=== PATIENT | female | born 1995 | race Caucasian/White ===

== ENCOUNTER → 2021-06-28 15:57 | Outpatient (CLI) | payer MEDICAID, SELFPAY ==
[2021-06-28 16:50] LABS: Absolute Lymphocyte Count 3.22 X10^3/uL (0.83-4.51); Absolute Neutrophil Count 6.9 X10^3/uL (2.0-7.7); Basophil# 0.08 X10^3/uL; Basophil% 0.7 % (0-1); Eosinophils% 3.5 % (0-5); Hematocrit 42.8 % (37-47); Hemoglobin 14.3 g/dL (12.0-15.0); Lymphocyte # 3.22 X10^3/ul (0.83-4.51); Mean Corp Hgb Conc 33.4 g/dL (32-36); Mean Corpuscular Hgb 29.9 pg (27.0-32.0); Mean Corpuscular Volume 89.5 fL (81-99); Mean Platelet Vol. 10.6 fl (6.2-12.0); Monocyte# 0.87 X10^3/uL; Monocyte% 7.6 % (0-10); NRBC Flagged by Analyzer 0 % (0-5); Neutrophil # 6.89 X10^3/uL (2.7-7.7); Neutrophil % 59.9 % (47-70); Platelet Count 300 K/mm3 (150-450); RBC Distribution Width CV 12.6 % (11.6-14.6); RBC Distribution Width SD 41.3 fl (35.1-43.9); Red Blood Count 4.78 M/mm3 (4.2-5.4); White Blood Count 11.5 K/mm3 (4.4-11.0)
[2021-06-28 17:10] LABS: Hemoglobin A1c 5.3 % (3.8-5.6)
[2021-06-28 18:52] LABS: ALB/GLOB Ratio 0.9 RATIO (0.9-2.4); AST(SGOT) 11 U/L (15-37); Alanine Aminotransfer ALT/SGPT 24 U/L (13-56); Albumin, Serum 3.7 g/dL (3.2-5.0); Alkaline Phosphatase 65 U/L (45-117); Anion Gap 9 (5-15); BUN 11 mg/dL (7-18); BUN/Creat Ratio 16.6 RATIO (10-20); Calcium,Total 8.9 mg/dL (8.5-10.1); Chloride 105 mmol/L (98-107); Cholesterol 182 mg/dL (200); Creatinine, Serum 0.66 mg/dL (0.55-1.02); EST Glomerular Filtration Rate 113 mL/min (>60); Est Glom Filt Rate - Afr Amer 137 mL/min (>60); Globulin 3.9 g/dL (2.2-4.2); Glucose 86 mg/dL (74-106); High Density Lipoprotein 28 mg/dL; Potassium 4.1 mmol/L (3.5-5.1); Protein, Total 7.6 g/dL (6.4-8.2); Sodium Level 139 mmol/L (136-145); Triglycerides 208 mg/dL; Very Low Density Lipoprotein 42 mg/dL (5-40)
== END ==
PROVIDERS: PCP Internal Medicine; Referring Provider Internal Medicine; Visit Provider Internal Medicine
DX: R56.9 Unspecified convulsions (principal); E66.01 Morbid (severe) obesity due to excess calories; Z68.42 Body mass index [BMI] 45.0-49.9, adult
CPT/HCPCS: 36415; 80053; 80061; 83036; 85025

== ENCOUNTER 2021-09-24 15:04 | Emergency (ER) | payer MEDICAID, SELFPAY ==
[2021-09-24 15:04] VITALS: BP 144/89; PULSE 80; RESP 16; TEMP 36.7; O2SAT 98; BMI 43.0
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
== END 2021-09-24 16:07 | disposition home or self-care (01) ==
LOC: ED 15:33
PROVIDERS: Emergency Provider Emergency Medicine; PCP Internal Medicine; Visit Provider Emergency Medicine
DX: S20.219A Contusion of unspecified front wall of thorax, initial encounter (principal); E66.01 Morbid (severe) obesity due to excess calories; Z68.41 Body mass index [BMI] 40.0-44.9, adult; V49.49XA Driver injured in collision with other motor vehicles in traffic accident, initial encounter; W22.11XA Striking against or struck by driver side automobile airbag, initial encounter; Y93.89 Activity, other specified; Y99.8 Other external cause status; F17.210 Nicotine dependence, cigarettes, uncomplicated
CPT/HCPCS: 71046; 99282

== ENCOUNTER 2021-11-01 14:40 | Outpatient (CLI) | payer MEDICAID, SELFPAY ==
--- NOTE | 2021-11-01 17:09 | US_ITS ---
STUDY: ULTRASOUND OF THE FEMALE PELVIS - COMPLETE REASON FOR EXAM: Female, 25 years old. PCOS LMP: 10/09/2021. TECHNIQUE: Transabdominal TECHNICAL QUALITY: Adequate. COMPARISON: None. FINDINGS: The uterus is anteverted and is in a midline position. The uterus measures 12.1 cm x 5.4 cm x 3.2 cm. Normal uterine cervix. The endometrium measures 2 mm in thickness, and is hyperechoic. There is no demonstrated endometrial mass. There is no demonstrated myometrial mass. I.U.D. - The patient does not have an I.U.D. The right ovary is visualized. The right ovary measures 2.5 cm x 2.6 cm x 1.8 cm. There is no right ovarian cyst or ovarian mass. There is no visualized right adnexal mass or complex lesion. There is normal arterial and normal venous vascularity. The left ovary is visualized. The left ovary measures 4 cm x 3.4 cm x 2.2 cm. There is a 3.1 cm x 2.8 cm x 1.5 cm cyst in the left ovary. There is no visualized left adnexal mass or complex lesion. There is normal arterial and normal venous vascularity. There is no fluid in the cul-de-sac. The pre void volume of the bladder was 471 ml. Polycystic ovary disease: No. US/Pelvic (Non ) IMPRESSION: 3.1 cm by 2.8 cm x 1.5 cm left ovarian cyst. Electronically Signed: Kalpesh Dominguez MD at 8:49 EST ,
== END 2021-11-01 23:59 | disposition home or self-care (01) ==
LOC: US 11-24 14:41
PROVIDERS: PCP Internal Medicine; Referring Provider Internal Medicine; Visit Provider Internal Medicine
DX: E28.2 Polycystic ovarian syndrome (principal)
CPT/HCPCS: 76856

== ENCOUNTER 2021-12-09 12:31 | Outpatient (CLI) | payer MEDICAID, SELFPAY ==
--- NOTE | 2021-12-09 14:51 | TELEMED_ITS ---
[facility] has confirmed receipt of a request for visit. This document confirms receipt of the order initiating the consult. To find the results of the consultation, please view the patient's reports for the scanned Tele[facility] Consult.
== END 2021-12-09 23:59 | disposition home or self-care (01) ==
LOC: PSN 12:32
PROVIDERS: PCP Internal Medicine; Referring Provider Internal Medicine; Visit Provider Internal Medicine
DX: R56.9 Unspecified convulsions (principal)
CPT/HCPCS: 95819

== ENCOUNTER → 2022-04-03 | Outpatient (CLI) | payer MEDICAID, SELFPAY ==
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
--- NOTE | 2022-04-03 16:40 | RAD_ITS ---
STUDY: X-RAY - LUMBAR SPINE REASON FOR EXAM: Female, 26 years old. chronic back pain TECHNIQUE: 3 view(s) of the lumbar spine were obtained. COMPARISON: None FINDINGS: Vertebral bodies are normal in height. No definite fracture demonstrated. No subluxation. No paravertebral soft tissue mass identified. RAD/Lumbar Spine 2 or 3 Views IMPRESSION: No evidence of fracture or subluxation. Electronically Signed: Tania Melgoza MD at 7:38 EDT ,
== END | disposition home or self-care (01) ==
LOC: RAD 16:19
PROVIDERS: PCP Internal Medicine; Visit Provider Nurse Practitioner Family
DX: M54.9 Dorsalgia, unspecified (principal); M25.512 Pain in left shoulder; G89.29 Other chronic pain
CPT/HCPCS: 72100; 73030

== ENCOUNTER → 2022-06-16 | Outpatient (CLI) | payer MEDICAID, SELFPAY ==
[2022-06-16 17:17] LABS: Internal QC Validated? YES +Cl - CLEAR BKGD; Pregnancy, Urine Negative Negative
== END | disposition home or self-care (01) ==
LOC: LABSPEC 17:08
PROVIDERS: PCP Internal Medicine; Visit Provider Nurse Practitioner Family
DX: N92.6 Irregular menstruation, unspecified (principal); R05.9 Cough, unspecified
CPT/HCPCS: 87635; 81025; U0003; U0005

== ENCOUNTER 2023-05-13 04:51 | Emergency (ER) | payer MEDICAID, SELFPAY ==
[2023-05-13 04:52] VITALS: BP 111/84; PULSE 77; RESP 18; TEMP 37; O2SAT 99; BMI 46.0
== END 2023-05-13 05:08 | disposition left against medical advice (07) ==
LOC: ED 05:07
PROVIDERS: PCP Internal Medicine
DX: R69 Illness, unspecified (principal)
CPT/HCPCS: 99282

== ENCOUNTER → 2023-10-17 | Outpatient (CLI) | payer MEDICAID, SELFPAY ==
[2023-10-17 17:00] LABS: Absolute Lymphocyte Count 2.51 X10^3/uL (0.83-4.51); Absolute Neutrophil Count 4.6 X10^3/uL (2.0-7.7); Basophil# 0.05 X10^3/uL; Basophil% 0.6 % (0-1); Eosinophil# 0.21 X10^3/uL; Eosinophils% 2.6 % (0-5); Hematocrit 41.3 % (37-47); Hemoglobin 13.9 g/dL (12.0-15.0); Lymphocyte # 2.51 X10^3/ul (0.83-4.51); Lymphocyte % 31.3 % (19-41); Mean Corp Hgb Conc 33.7 g/dL (32-36); Mean Corpuscular Hgb 29.8 pg (27.0-32.0); Mean Corpuscular Volume 88.4 fL (81-99); Mean Platelet Vol. 10.9 fl (6.2-12.0); Monocyte# 0.65 X10^3/uL; Monocyte% 8.1 % (0-10); NRBC Flagged by Analyzer 0 % (0-5); Neutrophil # 4.57 X10^3/uL (2.7-7.7); Neutrophil % 57.2 % (47-70); Platelet Count 255 K/mm3 (150-450); RBC Distribution Width CV 13.1 % (11.6-14.6); RBC Distribution Width SD 42.7 fl (35.1-43.9); Red Blood Count 4.67 M/mm3 (4.2-5.4)
[2023-10-17 17:16] LABS: Cholesterol 200 mg/dL (200); High Density Lipoprotein 28 mg/dL; Triglycerides 381 mg/dL; Very Low Density Lipoprotein 76 mg/dL (5-40)
[2023-10-17 17:17] LABS: ALB/GLOB Ratio 1.3 RATIO (0.9-2.4); AST(SGOT) 12 U/L (15-37); Alanine Aminotransfer ALT/SGPT 30 U/L (13-56); Albumin, Serum 3.7 g/dL (3.2-5.0); Alkaline Phosphatase 52 U/L (45-117); Anion Gap 2 (5-15); BUN 8 mg/dL (7-18); BUN/Creat Ratio 9.8 RATIO (10-20); Calcium,Total 8.6 mg/dL (8.5-10.1); Chloride 108 mmol/L (98-107); Creatinine, Serum 0.82 mg/dL (0.55-1.02); EST Glomerular Filtration Rate 87 mL/min (>60); Est Glom Filt Rate - Afr Amer 106 mL/min (>60); Globulin 2.9 g/dL (2.2-4.2); Glucose 104 mg/dL (74-106); Potassium 4.4 mmol/L (3.5-5.1); Protein, Total 6.6 g/dL (6.4-8.2); Sodium Level 138 mmol/L (136-145)
--- OUTSIDE RECORDS SUMMARY | 2023-10-17 18:48 | XMS RPT_ITS | CCD ---
Author Name Unknown Address [address] [place] [address] Organization [facility] Care Team Providers Care Geriatric Assistant Name Role Phone Unavailable Primary Care Provider UnavailKEYANNA Deleon Attending Unavailable GUME MCINTOSH Referring Unavailable GUME MCINTOSH Attending Unavailable CHRISTIAN BHAKTA Referring Unavailable Allergies Allergy Classification Reported Allergen(s) Allergy Type Date of Onset Reaction(s) Facility (6 sources) Amoxicillin; Translations: [AMOXICILLIN] Drug Allergy 10-13-2005 [facility] Work Phone: (2 sources) Penicillins; Translations: [PENICILLINS] Propensity to adverse reactions 10-13-2005 [facility] Work Phone: (4 sources) Penicillins Propensity to adverse reactions 10-13-2005 [facility] Work Phone: Medications Current Medications Medication Drug Class(es) Dates Sig (Normalized) Sig (Original) doxycycline monohydrate 100 mg oral tablet (1 source) Tetracycline-clas s Drug Start: 01-09-2022 End: 01-14-2022 take 1 tablet by mouth twice daily doxycycline monohydrate 100 mg tablet Take 1 tablet by mouth twice daily for 5 days. 10 tablet 0 01/09/2022 01/14/2022 Active Completed/Discontinued Medications Medication Drug Class(es) Dates Sig (Normalized) Sig (Original) [id number] 200 actuat albuterol 0.09 mg/actuat metered dose inhaler (10 sources) beta2-Adrenergic Agonist Start: 12-03-2010 take 2 puff(s) by inhalation every six hours as needed for wheezing albuterol HFA 90 mcg/Actuation INHALATION inhaler Inhale 2 Puffs as instructed every 6 hours as needed for Wheezing/Shortnes s of Breath. 1 Inhaler 2 12/03/2010 Active Problems Active Problems Problem Classification Problem Date Documented Date Episodic/Chronic Contraceptive and procreative management (2 sources) Subcutaneous contraceptive implant present; Translations: [Encounter for surveillance of implantable subdermal contraceptive] Episodic Menstrual disorders (3 sources) Missed period; Translations: [Irregular menstruation, unspecified] Onset: 05-17-2023 05-16-2023 Chronic Other upper respiratory disease (1 source) Congestion of nasal sinus; Translations: [Nasal congestion] Episodic Past or Other Problems Problem Classification Problem Date Documented Date Episodic/Chronic Abdominal pain (5 sources) Abdominal pain; Translations: [Unspecified abdominal pain] Onset: 12-31-2007 12-31-2007 Episodic Headache; including migraine (5 sources) Headache; Translations: [Headache] Onset: 12-31-2007 12-31-2007 Episodic Other complications of ; puerperium affecting management of mother (5 sources) Teenage ; Translations: [Teen ] Onset: 09-15-2009 09-15-2009 Episodic Other complications of (5 sources) Supervision of other high risk pregnancies, unspecified trimester; Translations: [Supervision of other high-risk ] Onset: 09-15-2009 09-15-2009 Episodic Other connective tissue disease (5 sources) Muscle pain; Translations: [Myalgia and myositis, unspecified] Onset: 12-31-2007 12-31-2007 Episodic Other connective tissue disease (5 sources) Hypermobility syndrome; Translations: [Hypermobility syndrome] Onset: 12-31-2007 12-31-2007 Episodic Results Test Name Value Interpretation Reference Range Facil ity Vital Signs Date Time Vital Sign Value Performing Clinician Mamadou michael 05-16-2023 17:14-0400 Body temperature 98.4 [degF] Christian Bhakta APRN.CNP Work Phone: [facility] 05-16-2023 17:14-0400 Body weight 94.35 kg Christian Bhakta APRN.CNP Work Phone: [facility] 05-16-2023 17:14-0400 Diastolic blood pressure 74 mm[Hg] Christian Bhakta APRN.CNP Work Phone: [facility] 05-16-2023 17:14-0400 Heart rate 83 /min Christian Praisler-Wood MEAT PASSER.[employer] F[employer]ER Work Phone: [facility] 05-16-2023 17:14-0400 Respiratory rate 21 /min Christian Praisler-Wood MEAT PASSER.[employer] FILLER Work Phone: [facility] 05-16-2023 17:14-0400 SaO2% (BldA) [Mass fraction] 98 % Christian Praisler-Wood MEAT PASSER.[employer] FILLER Work Phone: [facility] 05-16-2023 17:14-0400 Systolic blood pressure 118 mm[Hg] Christian Praisler-Wood MEAT PASSER.[employer] FILLER Work Phone: [facility] 12-22-2022 12:03-0400 Diastolic blood pressure 74 mm[Hg] Keyanna Carroll MEAT PASSER.[employer] FILLER Work Phone: [facility] 12-22-2022 12:03-0400 Heart rate 79 /min Keyanna Poynette MEAT PASSER.[employer] FILLER Work Phone: [facility] 12-22-2022 12:03-0400 SaO2% (BldA) [Mass fraction] 98 % Keyanna Poynette MEAT PASSER.[employer] FILLER Work Phone: [facility] 12-22-2022 12:03-0400 Systolic blood pressure 118 mm[Hg] Keyanna Carroll MEAT PASSER.[employer] F[employer]ER Work Phone: [facility] 12-22-2022 11:27-0400 Body weight 107.14 kg Keyanna Carroll MEAT PASSER.[employer]ER Work Phone: [facility] 01-09-2022 13:30-0400 Body temperature 98.71 [degF] Jenelle Quinn MEAT PASSER.[employer] F[employer]ER Work Phone: [facility] 01-09-2022 13:30-0400 Body weight 98.79 kg Jenelle Quinn MEAT PASSER.[employer] F[employer]ER Work Phone: [facility] 01-09-2022 13:30-0400 Diastolic blood pressure 70 mm[Hg] Jenelle Quinn APRN.CNP Work Phone: [facility] 01-09-2022 13:30-0400 Heart rate 64 /min Jenelle Quinn APRN.[employer] F[employer]ER Work Phone: [facility] 01-09-2022 13:30-0400 Respiratory rate 22 /min Jenelle Quinn APRN.[employer] FILLER Work Phone: [facility] 01-09-2022 13:30-0400 SaO2% (BldA) [Mass fraction] 98 % Jenelle Quinn APRN.[employer] F[employer]ER Work Phone: [facility] 01-09-2022 13:30-0400 Systolic blood pressure 104 mm[Hg] Jenelle Quinn APRN.[employer] FILLER Work Phone: [facility] Encounters Encounter Date Encounter Type Care Provider Facility Start: 06-06-2023 End: 06-07-2023 ambulatory GUME MCINTOSH Facility:[facility] Start: 05-18-2023 Telephone encounter Fabrizio Marrero MD Work Phone: [facility] Procedures Date Procedure Procedure Detail Performing Clinician Start: 05-16-2023 Urine test visual color cmprsn meths Christian Bhakta APRN.CAN FILLER Work Phone: Start: 03-25-2019 Adult depression screening assessment Jenelle Quinn APRN.[employer] FILLER Work Phone: Plan of Treatment Date Care Activity Detail Author Start: 05-16-2023 End: 07-16-2023 Choriogonadotropin.be ta subunit [Units/volume] in Serum or Plasma HCG QUANTITATIVE Lab Routine Missed period Expected: 05/16/2023, Expires: 07/16/2023 [facility] Work Phone: Immunizations Immunization Date Immunization Notes Care Provider Prince kerns 07-22-2009 influenza virus vaccine, unspecified formulation Jenelle Quinn APRN.CAN FILLER Work Phone: [facility] Work Phone: 07-22-2009 novel [id number], all formulations Jenelle Quinn APRN.[employer] FILLER Work Phone: [facility] Work Phone: 10-15-2007 human papilloma viru s vaccine, quadrivalent Jenelle Quinn APRN.[facility] Work Phone: [facility] Work Phone: 09-16-2007 hepatitis A vaccine, unspecified formulation Jenelle Quinn APRN.[employer] F[employer]ER Work Phone: [facility] Work Phone: 09-16-2007 influenza virus vaccine, unspecified formulation Jenelle Quinn APRN.[employer] F[employer] Work Phone: [facility] Work Phone: 04-26-2007 human papilloma viru s vaccine, quadrivalent Jenelle Quinn APRN.[facility] Work Phone: [facility] Work Phone: 02-20-2007 hepatitis A vaccine, unspecified formulation Jenelle Quinn APRN.[facility] Work Phone: [facility] Work Phone: 02-20-2007 human papilloma viru s vaccine, quadrivalent Jenelle Quinn APRN.[facility] Work Phone: [facility] Work Phone: 02-20-2007 Meningococcal, MCV4, unspecified conjugate formulation(groups A, C, Y and W-135) Jenelle Quinn APRN.[facility] Work Phone: [facility] Work Phone: 02-20-2007 varicella virus vaccine America Quinn APRN.[employer] F[employer] Work Phone: [facility] Work Phone: 09-11-2006 influenza virus vaccine, unspecified formulation Jenelle Quinn APRN.[facility] Work Phone: [facility] Work Phone: 03-07-2005 tetanus and diphther ia toxoids, adsorbed, preservative free, for adult use (2 Lf of tetanus toxoid and 2 Lf of diphtheria toxoid) Jenelle Quinn APRN.[employer] F[employer]ER Work Phone: [facility] Work Phone: 08-03-2004 influenza virus vaccine, unspecified formulation Jenelle Quinn APRN.[facility] Work Phone: [facility] Work Phone: 07-09-2003 influenza virus vaccine, unspecified formulation Jenelle Quinn APRN.[employer] Work Phone: [facility] Work Phone: 07-29-2001 influenza virus vaccine, unspecified formulation Jenelle Quinn APRN.[employer] F[employer]ER Work Phone: [facility] Work Phone: 07-27-2000 varicella virus vaccine America Quinn APRN.[facility] Work Phone: [facility] Work Phone: 07-07-1999 diphtheria, tetanus toxoids and acellular pertussis vaccine Jenelle Quinn APRN.[facility] Work Phone: [facility] Work Phone: 07-07-1999 measles, mumps and rubella virus vaccine Jenelle Quinn APRN.[employer] Work Phone: [facility] Work Phone: 07-07-1999 trivalent poliovirus vaccine, live, oral Jenelle Quinn APRN.[employer] Work Phone: [facility] Work Phone: 04-02-1995 diphtheria, tetanus toxoids and acellular pertussis vaccine Jenelle Quinn APRN.[employer] Work Phone: [facility] Work Phone: 04-02-1995 haemophilus influenz ae type b vaccine, HbOC conjugate Jenelle Quinn APRN.[employer] F[employer] Work Phone: [facility] Work Phone: 04-02-1995 measles, mumps and rubella virus vaccine Jenelle Quinn APRN.[employer] F[employer] Work Phone: [facility] Work Phone: 10-03-1994 hepatitis B vaccine, pediatric or pediatric/adolescent dosage Jenelle Quinn APRN.[employer] F[employer] Work Phone: [facility] Work Phone: 07-03-1994 diphtheria, tetanus toxoids and pertussis vaccine Jenellenohemi Quinn APRN.[facility] Work Phone: [facility] Work Phone: 07-03-1994 haemophilus influenz ae type b vaccine, HbOC conjugate Jenellenohemi Quinn APRN.[facility] Work Phone: [facility] Work Phone: 07-03-1994 trivalent poliovirus vaccine, live, oral Jenellenohemi Quinn APRN.[facility] Work Phone: [facility] Work Phone: 05-01-1994 diphtheria, tetanus toxoids and pertussis vaccine Jenellenohemi Quinn APRN.[facility] Work Phone: [facility] Work Phone: 05-01-1994 haemophilus influenz ae type b vaccine, HbOC conjugate Jenellenohemi Quinn APRN.[facility] Work Phone: [facility] Work Phone: 05-01-1994 trivalent poliovirus vaccine, live, oral Jenelle Quinn APRN.[facility] Work Phone: [facility] Work Phone: 03-02-1994 diphtheria, tetanus toxoids and pertussis vaccine Jenellenohemi Quinn APRN.[facility] Work Phone: [facility] Work Phone: 03-02-1994 haemophilus influenz ae type b vaccine, HbOC conjugate Jenelle Quinn APRN.[facility] Work Phone: [facility] Work Phone: 03-02-1994 trivalent poliovirus vaccine, live, oral Jenelle James MEAT PASSER.[facility] Work Phone: [facility] Work Phone: 01-30-1994 hepatitis B vaccine, pediatric or pediatric/adolescent dosage Jenelle Quinn APRN.[facility] Work Phone: [facility] Work Phone: 1993 hepatitis B vaccine, pediatric or pediatric/adolescent dosage Jenelle Quinn APRN.[facility] Work Phone: [facility] Work Phone: Payers Date Payer Category Payer Medicaid [facility] MEDICAID [id number] 2022-Present [phone] [address] [place] [address] Medicaid [id number] 2022 Medicaid [id number] 2006 Medicaid [facility] AID [employer] MEDICAID [id number] 2006-Present [phone] [address] [place] [address] Medicaid [id number] Social History Date Type Detail Facility Start: 08-04-2011 End: 12-22-2022 Tobacco smoking status NCIS Smokes tobacco daily [facility] History of tobacco use Cigarette Smoker [facility] Work Phone: Start: 01-09-2022 End: 05-16-2023 Alcohol intake Current drinker of alcohol (finding) [facility] Start: 09-19-2018 History SDOH Alcohol Comment occasional [facility] Start: 1995 Sex Assigned At Not on file [facility] Start: 2021 End: 01-09-2022 Exposure to SARS-CoV-2 (event) Not sure [facility] Work Phone: Start: 08-04-2011 End: 12-22-2022 Tobacco use and exposure Smokeless tobacco non-user [facility] Work Phone: Start: 12-22-2022 End: 05-16-2023 History of Social function [facility] Start: 12-22-2022 End: 05-16-2023 Tobacco use panel [facility] Adult Depression Screening Assessment 0 [facility] Clinical Notes 09-15-2009 to 06-06-2023 Telephone Encounter - Joyce Thomas RN - 05/18/2023 8:52 AM EDTTelephone Encounter - Katy Dyer LPN - 05/18/2023 7:37 AM EDTPjustyna-Christian Sanchez APRN.CAN FILLER - 05/16/2023 5:28 PM EDT Note Date & Type Note Facility 06-06-2023 Note HNO ID: [id number] Author: Gume Mcintosh MD Service: ? Author Type: Physician Type: Progress Notes Filed: 06/06/2023 3:06 PM Note Text: Zandra Hernández is a 27 year old female who presents for problem visit for + HCG. . HPI: 27 YOF had nexplanon out about 4-5 months ago. Had regular menses since. Then was late and went to [facility] care and +HCG quant 25. Started bleeding 05/30 and still bleeding light now. Was like a normal menses, heavy for a couple days. Would like to be . OB History T1 L1 SAB0 IAB0 Ectopic0 Multiple0 Live Births1 Quality Control Chemist History LMP: 05/30/2023 (Exact Date), Having periods Age at Menarche: Age at First : Age at Menopause: Quality Control Chemist History Comments: Sexual Activity: Yes; Male Contraception: No contraception data on record PAST MEDICAL HISTORY Diagnosis Date Contact dermatitis and other eczema due to other specified agent PMH - PAST MEDICAL HISTORY OF hyper- mobility syndrome and myalgia - Dr Rosales PMH - PAST MEDICAL HISTORY OF normal color vision PMH - PAST MEDICAL HISTORY OF NARCOLEPSY- SIBILITY Unspecified asthma(493.90) PAST SURGICAL HISTORY Procedure Laterality Date DELIVER IN ANT/ CARE 11/19/2009 NEXPLANON INSERTION removed FAMILY HISTORY Problem Relation Age of Onset Asthma Mother Arthritis Father Seizures Father Hypertension Maternal Grandmother Asthma Maternal Grandmother Diabetes Maternal Grandmother Hypertension Maternal Grandfather Asthma Maternal Grandfather Diabetes Maternal Grandfather Headache Paternal Grandmother Hypertension Paternal Grandmother Lipids Paternal Grandmother Headache Paternal Grandfather Hypertension Paternal Grandfather Lipids Paternal Grandfather Diabetes Maternal Aunt other (Other) Other Lugarics disease on mothers side/great great grandfatherhad polio, asthma, and emphysema Social History Tobacco Use Smoking status: Every Day Years: 1 Types: Cigarettes Smokeless tobacco: Never Vaping Use Vaping Use: Never used Substance Use Topics Alcohol use: Yes Comment: occasional Drug use: No Current Outpatient Medications Medication Sig DULoxetine (CYMBALTA) 20 mg capsule Take 20 mg by mouth once daily. pantoprazole DR (PROTONIX) 40 mg tablet Take by mouth. etonogestrel (NEXPLANON) subdermal implant 68 mg 1 Each by SUBDERMAL route as directed. (Patient not taking: Reported on 05/16/2023) ibuprofen (MOTRIN) 800 mg tablet Take 1 tablet by mouth every 8 hours as needed for Pain. Take with food. cyclobenzaprine (FLEXERIL) 10 mg tablet Take 1 tablet by mouth at bedtime as needed for Muscle Spasm. naproxen (NAPROSYN) 500 mg tablet Take 1 tablet by mouth twice daily as needed (for pain/inflammation). Take with food. albuterol HFA 90 mcg/Actuation INHALATION inhaler Inhale 2 Puffs as instructed every 6 hours as needed for Wheezing/Shortness of Breath. fluticasone (FLOVENT HFA) 110 mcg/Actuation INHALATION inhaler Inhale 2 Puffs as instructed twice daily. ALBUTEROL 90 MCG/ACTUATION AEROSOL INHALER Inhale one(1) - two(2) puffs four(4) times a day as needed for wheezing and shortness of breath. No current facility-administered medications for this visit. Allergies As of Date: 06/06/2023 Allergen Noted Reaction AMOXICILLIN 10/13/2005 Hives PENICILLINS 10/13/2005 Hives Fully Assessed 05/16/2023 Allergies and current medication updated:Yes EXAM: BP 106/74 Wt 206 lb (93.4kg) LMP 05/30/2023 GENERAL: pleasant, female in no apparent distress HEENT: Normocephalic, atraumatic, mucus membranes moist, and no lesions ASSESSMENT AND PLAN: Encounter Diagnosis ICD-10-CM 1. Irregular menstrual cycle N92.6 HCG QUAL UR B/O + faint positive on urine test. Likely early chemical . Will recheck HCG> Recommend PNV in anticipation of attempting . Does not want to prevent . F/u for annual or prn. Gume Mcintosh MD [facility] 05-18-2023 Miscellaneous Notes Patient calls and notified of results and providers instructions. Patient verbalizes understanding. Joyce Thomas RN Left message for patient to return call. Katy Dyer LPN Blood test was positive at a low level - she is probably a few weeks . Follow up with [facility]. documented in this encounter [facility] 05-16-2023 Note HNO ID: [id number] Author: Christian Bhakta APRN.CAN FILLER Service: ? Author Type: Nurse Practitioner Type: Progress Notes Filed: 05/16/2023 5:32 PM Note Text: Subjective HPI Zandra Hernández is a 27 year old female who presents with concern for . She took 2 tests at home which had very faint + lines, a third test did not work at all. She states her LMP was 04/06/23. She is not currently using control and is sexually active. Review of Systems Constitutional: Negative for chills and fever. Respiratory: Negative. Cardiovascular: Negative. Gastrointestinal: Positive for nausea. Negative for abdominal pain and vomiting. Genitourinary: Positive for frequency. BP 118/74 Pulse 83 Temp 36.9 ?C (98.4 ?F) Resp 21 Wt 94.3 kg (208 lb) LMP 04/06/2023 (Exact Date) SpO2 98% BMI 40.29 kg/m? PAST MEDICAL HISTORY Diagnosis Date Contact dermatitis and other eczema due to other specified agent PMH - PAST MEDICAL HISTORY OF hyper- mobility syndrome and myalgia - Dr Rosales PMH - PAST MEDICAL HISTORY OF normal color vision PMH - PAST MEDICAL HISTORY OF NARCOLEPSY-DR HO Unspecified asthma(493.90) PAST SURGICAL HISTORY Procedure Laterality Date DELIVER IN ANT/ CARE 11/19/2009 ALLERGIES Amoxicillin and Penicillins MEDICATIONS DULoxetine (CYMBALTA) 20 mg capsule Take 20 mg by mouth once daily. pantoprazole DR (PROTONIX) 40 mg tablet Take by mouth. ibuprofen (MOTRIN) 800 mg tablet Take 1 tablet by mouth every 8 hours as needed for Pain. Take with food. cyclobenzaprine (FLEXERIL) 10 mg tablet Take 1 tablet by mouth at bedtime as needed for Muscle Spasm. naproxen (NAPROSYN) 500 mg tablet Take 1 tablet by mouth twice daily as needed (for pain/inflammation). Take with food. albuterol HFA 90 mcg/Actuation INHALATION inhaler Inhale 2 Puffs as instructed every 6 hours as needed for Wheezing/Shortness of Breath. fluticasone (FLOVENT HFA) 110 mcg/Actuation INHALATION inhaler Inhale 2 Puffs as instructed twice daily. ALBUTEROL 90 MCG/ACTUATION AEROSOL INHALER Inhale one(1) - two(2) puffs four(4) times a day as needed for wheezing and shortness of breath. etonogestrel (NEXPLANON) subdermal implant 68 mg 1 Each by SUBDERMAL route as directed. (Patient not taking: Reported on 05/16/2023) FAMILY HISTORY Problem Relation Age of Onset Asthma Mother Arthritis Father Seizures Father Hypertension Maternal Grandmother Asthma Maternal Grandmother Diabetes Maternal Grandmother Hypertension Maternal Grandfather Asthma Maternal Grandfather Diabetes Maternal Grandfather Headache Paternal Grandmother Hypertension Paternal Grandmother Lipids Paternal Grandmother Headache Paternal Grandfather Hypertension Paternal Grandfather Lipids Paternal Grandfather Diabetes Maternal Aunt other (Other) Other Lugarics disease on mothers side/great great grandfatherhad polio, asthma, and emphysema Social History Tobacco Use Smoking status: Every Day Years: 1 Types: Cigarettes Smokeless tobacco: Never Substance Use Topics Alcohol use: Yes Comment: occasional Drug use: No Objective Physical Exam Vitals and nursing note reviewed. Constitutional: Appearance: Normal appearance. Cardiovascular: Rate and Rhythm: Normal rate and regular rhythm. Heart sounds: Normal heart sounds. Pulmonary: Effort: Pulmonary effort is normal. No respiratory distress. Breath sounds: Normal breath sounds. No wheezing or rales. Abdominal: General: There is no distension. Palpations: Abdomen is soft. There is no mass. Tenderness: There is no abdominal tenderness. There is no guarding. Neurological: Mental Status: She is alert. ASSESSMENT/PLAN: 1. Missed period - ICD9: 626.4, ICD10: N92.6 - HCG QUAL BLD - HCG QUANTITATIVE - HCG QUAL UR B/O- inconclusive in office (very faint + line). Blood test ordered. Christian Bhakta APRN.[facility] 05-16-2023 History of Presen t illness Narrative Subjective HPI Zandra Hernández is a 27 year old female who presents with concern for . She took 2 tests at home which had very faint + lines, a third test did not work at all. She states her LMP was 04/06/23. She is not currently using control and is sexually active. Review of Systems Constitutional: Negative for chills and fever. Respiratory: Negative. Cardiovascular: Negative. Gastrointestinal: Positive for nausea. Negative for abdominal pain and vomiting. Genitourinary: Positive for frequency. BP 118/74 Pulse 83 Temp 36.9 C (98.4 F) Resp 21 Wt 94.3 kg (208 lb) LMP 04/06/2023 (Exact Date) SpO2 98% BMI 40.29 kg/m PAST MEDICAL HISTORY Diagnosis Date Contact dermatitis and other eczema due to other specified agent PMH - PAST MEDICAL HISTORY OF hyper- mobility syndrome and myalgia - Dr Rosales PMH - PAST MEDICAL HISTORY OF normal color vision PMH - PAST MEDICAL HISTORY OF NARCOLEPSY-DR HO Unspecified asthma(493.90) PAST SURGICAL HISTORY Procedure Laterality Date DELIVER IN ANT/ CARE 11/19/2009 ALLERGIES Amoxicillin and Penicillins MEDICATIONS DULoxetine (CYMBALTA) 20 mg capsule Take 20 mg by mouth once daily. pantoprazole DR (PROTONIX) 40 mg tablet Take by mouth. ibuprofen (MOTRIN) 800 mg tablet Take 1 tablet by mouth every 8 hours as needed for Pain. Take with food. cyclobenzaprine (FLEXERIL) 10 mg tablet Take 1 tablet by mouth at bedtime as needed for Muscle Spasm. naproxen (NAPROSYN) 500 mg tablet Take 1 tablet by mouth twice daily as needed (for pain/inflammation). Take with food. albuterol HFA 90 mcg/Actuation INHALATION inhaler Inhale 2 Puffs as instructed every 6 hours as needed for Wheezing/Shortness of Breath. fluticasone (FLOVENT HFA) 110 mcg/Actuation INHALATION inhaler Inhale 2 Puffs as instructed twice daily. ALBUTEROL 90 MCG/ACTUATION AEROSOL INHALER Inhale one(1) - two(2) puffs four(4) times a day as needed for wheezing and shortness of breath. etonogestrel (NEXPLANON) subdermal implant 68 mg 1 Each by SUBDERMAL route as directed. (Patient not taking: Reported on 05/16/2023) FAMILY HISTORY Problem Relation Age of Onset Asthma Mother Arthritis Father Seizures Father Hypertension Maternal Grandmother Asthma Maternal Grandmother Diabetes Maternal Grandmother Hypertension Maternal Grandfather Asthma Maternal Grandfather Diabetes Maternal Grandfather Headache Paternal Grandmother Hypertension Paternal Grandmother Lipids Paternal Grandmother Headache Paternal Grandfather Hypertension Paternal Grandfather Lipids Paternal Grandfather Diabetes Maternal Aunt other (Other) Other Lugarics disease on mothers side/great great grandfatherhad polio, asthma, and emphysema Social History Tobacco Use Smoking status: Every Day Years: 1 Types: Cigarettes Smokeless tobacco: Never Substance Use Topics Alcohol use: Yes Comment: occasional Drug use: No Objective Physical Exam Vitals and nursing note reviewed. Constitutional: Appearance: Normal appearance. Cardiovascular: Rate and Rhythm: Normal rate and regular rhythm. Heart sounds: Normal heart sounds. Pulmonary: Effort: Pulmonary effort is normal. No respiratory distress. Breath sounds: Normal breath sounds. No wheezing or rales. Abdominal: General: There is no distension. Palpations: Abdomen is soft. There is no mass. Tenderness: There is no abdominal tenderness. There is no guarding. Neurological: Mental Status: She is alert. ASSESSMENT/PLAN: 1. Missed period - ICD9: 626.4, ICD10: N92.6 - HCG QUAL BLD - HCG QUANTITATIVE - HCG QUAL UR B/O- inconclusive in office (very faint + line). Blood test ordered. Christian Bhakta APRN.CAN FILLER documented in this encounter [facility] 05-16-2023 Instructions Christian Bhakta APRN.ISABEL - 05/16/2023 5:24 PM EDT ASSESSMENT/PLAN: 1. Missed period - ICD9: 626.4, ICD10: N92.6 - HCG QUAL BLD - HCG QUANTITATIVE - HCG QUAL UR B/O- inconclusive in office (very faint + line). Blood test ordered. Christian Bhakta APRN.ISABEL documented in this encounter [facility] 12-22-2022 Note HNO ID: [id number] Author: Keyanna Hodges APRN.ISABEL Service: ? Author Type: Nurse Practitioner Type: Progress Notes Filed: 12/22/2022 12:42 PM Note Text: Health Occupations Teacher offered: Patient declines. Zandra is a 26 year old who presents for Nexplanon removal for scheduled 3 year removal. UNIVERSAL PROTOCOL / SAFETY CHECKLIST Procedure to be Performed: Nexplanon Removal Sign In: A Moment of CARE was completed. Personnel directly involved with the procedure wore the appropriate PPE (Personal Protective Equipment). Patient/Surrogate Stated/Verified: PATIENT VERIFIED(optional for EMERGENT procedures): Patient name, Date of , Relevant allergies, and The intended procedure Time Out Communication: Intended patient and procedure match the source documents. Consent documented and matches the intended procedure. Sign Out: SIGN OUT (optional for EMERGENT procedures): No specimen collected. No instruments, equipment or retained foreign bodies applicable. Post-procedure follow-up management communicated and Plan of Care Visit completed when applicable. TECHNIQUE: Patient placed in supine position with left arm bent at the elbow and placed over the head. Skin cleansed with betadine. 2mL of 1% lidocaine with epi injected subQ along insertion site. Scalpel used to made a 5mm stab incision superficially at distal end of Nexplanon. Device removed under sterile technique with a small hemostat. Sterile pressure dressing applied. AANDP: 26 year old here for Nexplanon removal Nexplanon removed intact without difficulty. The patient was instructed to remove the dressing after 24 hours. Contraceptive plans nothing at this time Keyanna Hodges APRN.ISABEL [facility] 12-22-2022 History of Presen t illness Narrative Health Occupations Teacher offered: Patient declines. Zandra is a 26 year old who presents for Nexplanon removal for scheduled 3 year removal. UNIVERSAL PROTOCOL / SAFETY CHECKLIST Procedure to be Performed: Nexplanon Removal Sign In: A Moment of CARE was completed. Personnel directly involved with the procedure wore the appropriate PPE (Personal Protective Equipment). Patient/Surrogate Stated/Verified: PATIENT VERIFIED(optional for EMERGENT procedures): Patient name, Date of , Relevant allergies, and The intended procedure Time Out Communication: Intended patient and procedure match the source documents. Consent documented and matches the intended procedure. Sign Out: SIGN OUT (optional for EMERGENT procedures): No specimen collected. No instruments, equipment or retained foreign bodies applicable. Post-procedure follow-up management communicated and Plan of Care Visit completed when applicable. TECHNIQUE: Patient placed in supine position with left arm bent at the elbow and placed over the head. Skin cleansed with betadine. 2mL of 1% lidocaine with epi injected subQ along insertion site. Scalpel used to made a 5mm stab incision superficially at distal end of Nexplanon. Device removed under sterile technique with a small hemostat. Sterile pressure dressing applied. A&P: 26 year old here for Nexplanon removal Nexplanon removed intact without difficulty. The patient was instructed to remove the dressing after 24 hours. Contraceptive plans nothing at this time Keyanna Hodges APRN.CNP documented in this encounter [facility] 12-18-2022 Miscellaneous Notes Patient called and appointment scheduled. Juanita Schmitz RN Order filed. Keyanna Hodges APRN.CNP Order for Nexplanon removal pending. Krystal Kearney RN ----- Message from [facility] sent at 12/15/2022 4:15 PM EDT ----- Regarding: ARLEEN/ANISA/KEYANNA HODGES Contact: Patient has been identified by name and Date of : Yes Patient: Zandra Hernández Date of : 1995 Provider for this encounter : Keyanna Hodges No primary care provider on file. Reason for call: Triage Was an appointment scheduled: No Reason for requesting visit: ORDER FOR NEXPLANON REMOVAL ONLY Person calling: self Return call to: self Call patient at: on cell [phone] (home) [phone] (cell) Payor: [facility] MEDICAID / Plan: [facility] MEDICAID / Product Type: Medicaid / [facility] documented in this encounter [facility] 01-09-2022 Instructions Jenelle Quinn APRN.CAN FILLER - 01/09/2022 2:03 PM EDT 1.) Get more rest than you usually do - this will speed your recovery. If you push hard with your usual busy schedule, you will be sicker longer. 2.) Drink a lot of water - enough to make you urinate every 2-3 hours (your urine should be a light yellow color). This helps thin the phlegm and sooth the airways. Gatorade (G2) is less in sugar and replaces your electrolytes if not eating well. 3.) Run a cool mist humidifier in your bedroom on high with the door closed. This is a natural way to decongest, and it helps lessen scratchy throats, nasal stuffiness and coughs. 4.) For those without blood pressure concerns, take Sudafed as a decongestant (decreases stuffiness-lets drain), but realize that you will need to take it every 4-6 hours for several days. The lower dose is generally better tolerated (30mg)... Some people can make feel fast heart rate/jittery. You also may try anti-allergy pill like Claritin(loratidine) 10mg or carlos, benadryl (makes sleepy) over the counter as directed to help with drippy nose. Mucinex 600-1200mg twice daily(plain) may help thin secretions so they are easier to cough up. Those with high blood pressure and not with prostate problems can try [id number] Coricidin HBP for congestion. You may find nasal sprays such as Flonase or Nasacort, saline nasal spray and/or Netti Pot may be beneficial 5.) Take ibuprofen or acetominophen every 4-6 hours for pain/aches as needed if not contraindicated for you. Antibiotic as directed per prescription If you should breakout in a rash, stop the medicine and call the office. Any antibiotic has the potential to cause diarrhea due to alteration in the normal bacterial mark anthony of the gut. This can be reduced by eating yogurt with active cultures or taking probiotics daily while on the medication. If diarrhea becomes severe (watery, large volumes or more than 3-4/day) call the office. Women may experience yeast vaginitis due to alteration in the vaginal mark anthony. Symptoms include vaginal itching, irritation, and often a clumpy white discharge. If this occurs, there are several effective over the counter remedies available, including one-dose treatments. If these are unsuccessful, call the office. Antibiotics may interfer with control. If you are on oral contraceptives, use another form of protection (condoms, foams, jellies, diaphragm) throught the end of whatever pill pack you are on in 10 days. If you are not improving in 3-5 days or are worsening follow up with PCP documented in this encounter [facility] 01-09-2022 History of Presen t illness Narrative CC: Patient presents with: Sore Throat: cough, sneezing, BOND, fatigue x 1.5 weeks HPI: Zandra Hernández is a 26 year old female who presents to the office with complaint of cough, nonproductive and sore throat for 1.5 weeks. Symptoms are staying the same. Associated symptoms includes sneezing, headache and fatigue. Denies fever, nausea, vomiting and diarrhea. Treatments tried include nothing so far. with no relief of symptoms. Sick contacts: unknown. History of asthma, frequent episodes of bronchitis, chronic bronchitis, bronchiectasis or COPD: No Smoker: No Seasonal/environmental allergies: No The ROS is otherwise negative. The patient's pmh, medications, allergies, and past visits are reviewed. PHYSICAL EXAM: BP 104/70 Pulse 64 Temp 37.1 C (98.7 F) Resp 22 Wt 98.8 kg (217 lb 12.8 oz) LMP 10/31/2020 SpO2 98% BMI 42.18 kg/m General appearance: alert, cooperative, pleasant, in no acute distress Head: Normocephalic Eyes: EOM's intact, conjunctiva pink and moist, no icterus, sclera white, non-injected Ears: Right ear: External ear/canal- Normal, TM - clear with good landmarks. Left ear: External ear/canal- Normal, TM - clear with good landmarks Oropharynx:moist without lesions, No erythema, exudates or tonsillar hypertrophy. Heart: Negative. RRR without obvious murmur, gallop, or rubs. No ectopy. Lungs: clear to auscultation, without rales or wheeze, good air exchange PAST MEDICAL HISTORY Diagnosis Date Contact dermatitis and other eczema due to other specified agent PMH - PAST MEDICAL HISTORY OF hyper- mobility syndrome and myalgia - Dr Rosales PMH - PAST MEDICAL HISTORY OF normal color vision PMH - PAST MEDICAL HISTORY OF NARCOLEPSY-DR HO Unspecified asthma(493.90) PAST SURGICAL HISTORY Procedure Laterality Date DELIVER IN ANT/ CARE 11/19/2009 ALLERGIES Amoxicillin and Penicillins MEDICATIONS etonogestrel (NEXPLANON) subdermal implant 68 mg 1 Each by SUBDERMAL route as directed. ibuprofen (MOTRIN) 800 mg tablet Take 1 tablet by mouth every 8 hours as needed for Pain. Take with food. naproxen (NAPROSYN) 500 mg tablet Take 1 tablet by mouth twice daily as needed (for pain/inflammation). Take with food. albuterol HFA 90 mcg/Actuation INHALATION inhaler Inhale 2 Puffs as instructed every 6 hours as needed for Wheezing/Shortness of Breath. fluticasone (FLOVENT HFA) 110 mcg/Actuation INHALATION inhaler Inhale 2 Puffs as instructed twice daily. ALBUTEROL 90 MCG/ACTUATION AEROSOL INHALER Inhale one(1) - two(2) puffs four(4) times a day as needed for wheezing and shortness of breath. doxycycline monohydrate 100 mg tablet Take 1 tablet by mouth twice daily for 5 days. cyclobenzaprine (FLEXERIL) 10 mg tablet Take 1 tablet by mouth at bedtime as needed for Muscle Spasm. FAMILY HISTORY Problem Relation Age of Onset Asthma Mother Arthritis Father Seizures Father Hypertension Maternal Grandmother Asthma Maternal Grandmother Diabetes Maternal Grandmother Hypertension Maternal Grandfather Asthma Maternal Grandfather Diabetes Maternal Grandfather Headache Paternal Grandmother Hypertension Paternal Grandmother Lipids Paternal Grandmother Headache Paternal Grandfather Hypertension Paternal Grandfather Lipids Paternal Grandfather Diabetes Maternal Aunt other (Other) Other Lugarics disease on mothers side/great great grandfatherhad polio, asthma, and emphysema Social History Tobacco Use Smoking status: Current Every Day Smoker Years: 1.00 Types: Cigarettes Smokeless tobacco: Never Used Substance Use Topics Alcohol use: Yes Comment: occasional Drug use: No ASSESSMENT/PLAN: 1. Sinus congestion - ICD9: 478.19, ICD10: R09.81 Prescription instructions reviewed with patient as applicable. Doxycycline bid for 5 days. Potential red flag symptoms discussed with the patient. Reviewed appropriate action plan to take if red flag symptoms occur. Patient agreeable to treatment plan. Jenelle Quinn APRN.ISABEL documented in this encounter [facility] documented as of this encounter (statuses as of 01/09/2022) [facility] History of Past illness Narrative* Problem Noted Date Resolved Date High-risk 09/15/2009 09/15/2009 documented as of this encounter (statuses as of 12/18/2022) [facility] History of Past illness Narrative* Problem Noted Date Resolved Date High-risk 09/15/2009 09/15/2009 documented as of this encounter (statuses as of 12/23/2022) [facility] History of Past illness Narrative* Problem Noted Date Diagnosed Date Resolved Date High-risk 09/15/2009 09/15/19 10 documented as of this encounter (statuses as of 05/17/2023) [facility] History of Past illness Narrative* Problem Noted Date Diagnosed Date Resolved Date High-risk 09/15/2009 09/15/19 10 documented as of this encounter (statuses as of 05/18/2023) [facility] note* Diagnosis Sinus congestion- Primary Other diseases of nasal cavity and sinuses documented in this encounter [facility] note* Diagnosis Nexplanon removal- Primary Surveillance of previously prescribed implantable subdermal contraceptive documented in this encounter [facility] note* Diagnosis Encounter for Nexplanon removal- Primary Surveillance of previously prescribed implantable subdermal contraceptive documented in this encounter [facility] note* Diagnosis Missed period- Primary Irregular menstrual cycle [facility] Outpatient Procedure (Routine) - Authorized Specialty Diagnoses / Procedures Referred By Renetta choi Referred To Contact [facility] Diagnoses Nexplanon removal Encounter for initial prescription of implantable subdermal contraceptive Procedures NEXPLANON REMOVAL REMOVAL NON-BIODEGRADABLE DRUG DELIVERY IMPLANT INSERT DRUG IMPLANT DEVICE ETONOGESTREL IMPLANT SYSTEM Keyanna Hodges APRN.CNP [address] [place] [address] [facility] [address] [place] [address] Referral ID Status Reason Start Date Expiration Date Visits Requested Visits Authorized [id number] Authorized Auto-Generat ed Referral 12/18/2022 09/09/2023 2 2 [facility] Summary Purpose Family History No Family History Records Found Advance Directives No Advanced Directives Records Found Additional Source Comments Source Comments (unrecognize d section and content) In the event this informatio n is protected by the Federal Confidentiality of Alcohol and Drug Abuse Patient Records regulations: The Federal rules restrict any use of the information to criminally investigate or prosecute any alcohol or drug abuse patient.[facility] the event this information is protected by the Federal Confidentiality of Alcohol and Drug Abuse Patient Records regulations: The Federal rules restrict any use of the information to criminally investigate or prosecute any alcohol or drug abuse patient.[facility] the event this information is protected by the Federal Confidentiality of Alcohol and Drug Abuse Patient Records regulations: The Federal rules restrict any use of the information to criminally investigate or prosecute any alcohol or drug abuse patient.[facility] the event this information is protected by the Federal Confidentiality of Alcohol and Drug Abuse Patient Records regulations: The Federal rules restrict any use of the information to criminally investigate or prosecute any alcohol or drug abuse patient.[facility] the event this information is protected by the Federal Confidentiality of Alcohol and Drug Abuse Patient Records regulations: The Federal rules restrict any use of the information to criminally investigate or prosecute any alcohol or drug abuse patient.[facility] Reason for Visit (unrecogniz ed section and content) Reason Comments Orders Reason Comments nexplanon removal Specialty Diagnoses / Procedures Referred By Renetta t Referred To Contact [facility] Diagnoses Nexplanon removal Encounter for initial prescription of implantable subdermal contraceptive Procedures NEXPLANON REMOVAL REMOVAL NON-BIODEGRADABLE DRUG DELIVERY IMPLANT INSERT DRUG IMPLANT DEVICE ETONOGESTREL IMPLANT SYSTEM CarrollKeyanna, MEAT PASSER.CAN FILLER [address] [place] [address] [facility] [address] [place] [address] Referral ID Status Reason Start Date Expiration Date Visits Requested Visits Authorized [id number] Authorized Auto-Generat ed Referral 12/18/2022 09/09/2023 2 2 Reason Comments test X 1 month Reason Comments Results +hCG quant = 25 INFORMATION SOURCE (unrecogn ized section and content) FOR RECORDS PERTAINING TO PATIENTS WHO ARE OR HAVE BEEN ENROLLED IN A CHEMICAL DEPENDENCY/SUBSTANCEABUSE PROGRAM, SOME INFORMATION MAY BE OMITTED. This clinical summary was aggregated from multiple sources. Caution should be exercised in using it in the provision of clinical care. This summary normalizes information from multiple sources, and as a consequence, information in this document may materially change the coding, format and clinical context of patient data. In addition, data may be omitted in some cases. CLINICAL DECISIONS SHOULD BE BASED ON THE PRIMARY CLINICAL RECORDS. [facility] [employer] [facility]. provides no warranty or guarantee of the accuracy or completeness of information in this document.
== END | disposition home or self-care (01) ==
LOC: BIMLAB 14:34
PROVIDERS: PCP Internal Medicine; Referring Provider Internal Medicine; Visit Provider Internal Medicine
DX: E78.5 Hyperlipidemia, unspecified (principal); F41.9 Anxiety disorder, unspecified; F32.A Depression, unspecified
CPT/HCPCS: 36415; 80053; 80061; 85025

== ENCOUNTER → 2023-12-20 | Outpatient (CLI) | payer MEDICAID, SELFPAY ==
[2023-12-20 16:44] LABS: Absolute Lymphocyte Count 3.08 X10^3/uL (0.83-4.51); Absolute Neutrophil Count 5.5 X10^3/uL (2.0-7.7); Basophil# 0.06 X10^3/uL; Basophil% 0.6 % (0-1); Eosinophil# 0.22 X10^3/uL; Eosinophils% 2.3 % (0-5); Hemoglobin 13.9 g/dL (12.0-15.0); Lymphocyte # 3.08 X10^3/ul (0.83-4.51); Lymphocyte % 32.4 % (19-41); Mean Corp Hgb Conc 33.9 g/dL (32-36); Mean Corpuscular Hgb 30.1 pg (27.0-32.0); Mean Corpuscular Volume 88.7 fL (81-99); Monocyte# 0.61 X10^3/uL; Monocyte% 6.4 % (0-10); NRBC Flagged by Analyzer 0 % (0-5); Neutrophil # 5.49 X10^3/uL (2.7-7.7); Neutrophil % 57.9 % (47-70); Platelet Count 277 K/mm3 (150-450); RBC Distribution Width CV 12.5 % (11.6-14.6); RBC Distribution Width SD 40.8 fl (35.1-43.9); Red Blood Count 4.62 M/mm3 (4.2-5.4); White Blood Count 9.5 K/mm3 (4.4-11.0)
[2023-12-20 17:20] LABS: T4 Free Direct 0.95 ng/dL (0.76-1.46); Thyroid Stim Hormone (TSH) 1.01 uIU/mL (0.358-3.74)
[2023-12-20 17:24] LABS: hCG Titer Quant., Serum < 1 mIU/mL (1-3)
[2023-12-26 12:10] LABS: Testosterone, % Free 2.66 % (0.50-2.80); Testosterone, Free 0.24 ng/dL (0.10-0.85); Testosterone, Total 9 ng/dL (13-71)
== END | disposition home or self-care (01) ==
LOC: BIMLAB 15:11
PROVIDERS: PCP Internal Medicine; Referring Provider Nurse Practitioner; Visit Provider Nurse Practitioner
DX: L68.0 Hirsutism (principal); N92.6 Irregular menstruation, unspecified
CPT/HCPCS: 36415; 84402; 84403; 84439; 84443; 84702; 85025; 86850; 86900; 86901

== ENCOUNTER → 2024-03-12 | Outpatient (CLI) | payer MEDICAID, SELFPAY ==
--- NOTE | 2024-03-12 12:47 | NEURO ---
NCS and/or EMG Patient Report Ordering Doctor: Rachana Holder DATE OF SERVICE: 03/12/24 Amber presents for electrodiagnostic testing of the upper limbs. She reports bilateral hand numbness and weakness in property utilization officer. Electrodiagnostic findings: Right median motor nerve demonstrates normal distal latency and amplitude reduced conduction velocity. Left median motor responses within normal limits. Right ulnar motor nerve demonstrates normal distal latency, amplitude with normal conduction across the elbow. Left ulnar motor nerve demonstrates normal distal latency and amplitude with reduced conduction across the elbow nearly 20%. Normal median and ulnar F?waves. Prolonged right median sensory latency at the wrist. Needle EMG testing was performed in upper limbs. All muscles tested showed no evidence of denervation with normal motor unit action potentials. Electrodiagnostic impression: This is an abnormal study in the upper limbs 1. Electrodiagnostic findings suggestive of right-sided median mononeuropathy. This consistent with a mild right carpal tunnel syndrome 2. Electrodiagnostic findings suggestive of left-sided ulnar neuropathy. This is consistent with a mild cubital tunnel syndrome. 3. There is no electrodiagnostic evidence for left-sided median mononeuropathy, i.e. left carpal tunnel syndrome. 4. No electrodiagnostic evidence for cervical radiculopathy. Multi Select Codes Neurology Neurology Interp Codes: 36272-75 Musc test done w/n test comp (interp) (2) and 79885-27 Nrv cndj test 13/> studies (interp)
== END | disposition home or self-care (01) ==
LOC: PSN 07:00
PROVIDERS: PCP Internal Medicine; Referring Provider Nurse Practitioner; Visit Provider Nurse Practitioner
DX: M54.2 Cervicalgia (principal); R20.2 Paresthesia of skin
CPT/HCPCS: 95886; 95913

== ENCOUNTER → 2024-09-19 | Outpatient (CLI) | payer MEDICAID, SELFPAY ==
[2024-09-19 12:41] LABS: Cholesterol 203 mg/dL (200); High Density Lipoprotein 42 mg/dL; Triglycerides 229 mg/dL; Very Low Density Lipoprotein 46 mg/dL (5-40)
== END | disposition home or self-care (01) ==
LOC: BIMLAB 09:10
PROVIDERS: PCP Internal Medicine; Referring Provider Internal Medicine; Visit Provider Internal Medicine
DX: E78.5 Hyperlipidemia, unspecified (principal)
CPT/HCPCS: 36415; 80061

== ENCOUNTER 2024-12-29 09:14 | Inpatient (IN) | payer MEDICAID, SELFPAY ==
[2024-12-29] VITALS (16 sets, daily range): BP systolic 96–116; BP diastolic 42–77; PULSE 70–104; RESP 12–96; TEMP 36.1–36.9; O2SAT 17–100; BMI 45.1
[2024-12-29] MEDS: Lactated Ringers 1,000 ML 999 ML IV (09:40)
[2024-12-29 09:57] LABS: Absolute Lymphocyte Count 2.87 X10^3/uL (0.83-4.51); Absolute Neutrophil Count 12.3 X10^3/uL (2.0-7.7); Basophil# 0.04 X10^3/uL; Basophil% 0.2 % (0-1); Eosinophil# 0.23 X10^3/uL; Eosinophils% 1.4 % (0-5); Hematocrit 36.5 % (37-47); Hemoglobin 12.8 g/dL (12.0-15.0); Lymphocyte # 2.87 X10^3/ul (0.83-4.51); Mean Corp Hgb Conc 35.1 g/dL (32-36); Mean Corpuscular Hgb 28.8 pg (27.0-32.0); Mean Corpuscular Volume 82.2 fL (81-99); Mean Platelet Vol. 11.3 fl (6.2-12.0); Monocyte% 7.7 % (0-10); NRBC Flagged by Analyzer 0 % (0-5); Neutrophil # 12.28 X10^3/uL (2.7-7.7); Neutrophil % 72.7 % (47-70); Platelet Count 271 K/mm3 (150-450); RBC Distribution Width CV 13.5 % (11.6-14.6); RBC Distribution Width SD 40.2 fl (35.1-43.9); Red Blood Count 4.44 M/mm3 (4.2-5.4); White Blood Count 16.9 K/mm3 (4.4-11.0)
[2024-12-29 10:37] LABS: Bedside Glucose 82 mg/dL (74-106)
[2024-12-29] MEDS: Lactated Ringers 1,000 ML 150 ML IV (10:45)
[2024-12-29 11:11] LABS: Syphilis Antibodies Nonreactive (Nonreactive)
[2024-12-29] MEDS: Acetaminophen 500 MG Tablet 1000 MG PO ×2 (11:13→17:57)
[2024-12-29] MEDS: Sodium Citrate/Citric Acid 30 ML UDC PO (11:53)
[2024-12-29] MEDS: Clindamycin 900 MG/50 ML BAG 75 MG IV (12:30)
[2024-12-29] MEDS: WATER IVPB (12:40)
[2024-12-29] MEDS: GENTAMICIN IVPB (12:40)
[2024-12-29] MEDS: DEXTROSE 5% IVPB (12:40)
--- NOTE | 2024-12-29 13:11 | PCM.HP.OB ---
HPI - General General Date of Admission: 12/29/24 Date of Service: 12/29/24 Chief Complaint: Scheduled HPI Narrative ZANDRA ORTIZ, is a 28 F who presents scheduled for repeat Maternal Data Information Final REBECCA: 01[birth year]25 Gestational age: 39+2 PFSH PFSH Medical History Gestational diabetes Scapulothoracic bursitis of left shoulder Snapping scapula syndrome of left shoulder Menstrual abnormality Hyperlipidemia GERD (gastroesophageal reflux disease) Left shoulder pain Chronic back pain Tobacco abuse counseling Morbid obesity with BMI of 40.0-44.9, adult Flu vaccine need PCOS (polycystic ovarian syndrome) Seasonal allergies Migraines Anxiety and depression History of fracture of arm Broken arm delivery delivered Chronic neck and back pain Limb weakness Difficulty balancing Seizures Asthma Knee pain Diarrhea Severe headache Tiredness Shoulder pain Weight loss Home Medications ?Medication ?Instructions ?Recorded ?Last Taken ?Type acetaminophen 325 mg capsule 325 mg PO ONCE PRN 01/17/22 Unknown History (Tylenol) albuterol sulfate 90 mcg/actuation 2 puff inhalation Q6H PRN 01/17/22 Unknown Rx aerosol inhaler shortness of breath or wheezing #8.5 grams fluticasone propionate 44 2 puff inhalation BID #10.6 grams 01/17/22 Unknown Rx mcg/actuation HFA aerosol inhaler (Flovent HFA) naproxen 500 mg tablet 500 mg PO BID PRN pain #60 tabs 01/17/22 Unknown Rx lidocaine 5 % topical patch 2 patch topical DAILY #30 ea 01/03/24 Unknown Rx pantoprazole 40 mg tablet,delayed 40 mg PO DAILY #30 tabs 01/03/24 Unknown Rx release duloxetine 20 mg capsule,delayed See Rx Instructions .Route 04/16/24 Unknown Rx release .COMPLEX #90 caps aspirin 81 mg tablet,delayed 81 mg PO QDAY 09/19/24 Unknown History release (Adult Aspirin Regimen) ondansetron 4 mg disintegrating 4 mg PO Q8H PRN nausea and 10/03/24 Unknown Rx tablet vomiting #30 tabs famotidine 20 mg tablet (Acid 20 mg PO DAILY heartburn 12/29/24 Unknown History Controller) ondansetron HCl 4 mg tablet 4 mg PO DAILY nausea 12/29/24 Unknown History vit no.95-ferrous 1 tab PO DAILY vitamin 12/29/24 Unknown History fumarate 28 mg-folic acid 800 mcg tablet ( Multivitamins) Allergy/AdvReac Type Severity Reaction Status Date / Time amoxicillin Allergy Mild Rash Verified 12/29/24 09:29 Penicillins Allergy Mild Rash Verified 12/29/24 09:29 Family History Other Alcoholism Anxiety Arthritis Asthma Breast cancer CVA (cerebral vascular accident) Cancer Cervical cancer Colon cancer Diabetes Headache Heart disease Hyperlipemia Hypertension Kidney disease Mental disorder Parkinson disease Seizures ulcers Surgical History History of Social History Smoking Status: Current every day smoker tobacco type: cigarettes alcohol intake: never substance use type: does not use what type of physical activity do you participate in: walking and aerobics seatbelt use: always do you feel safe at home: Yes History 4 Elective abortions Hx Para 1 Spontaneous abortions Hx # Term Pregnancies Ectopic pregnancies Hx # Pregnancies Multiple births # of living children ROS Constitutional Constitutional: Denies fatigue, fever(s) or malaise Eyes Eyes: Denies change in vision ENT HEENT: Denies dizziness or headache(s) Cardiovascular Cardiovascular: Denies chest pain, dyspnea or lightheadedness Respiratory/Chest Respiratory/Chest: Denies cough or dyspnea Gastrointestinal Gastrointestinal: Denies change in bowel habits Genitourinary Genitourinary: Denies burning urination or genital lesions Integumentary Integumentary: Denies rash Neurologic Neurologic: Denies confusion, dizziness, headache(s), numbness or weakness Vital Signs Vital Signs Vital Signs: 12/29/24 09:48 Temperature 97.5 F L Temperature Source Temporal Pulse Rate 72 Respiratory Rate 16 Blood Pressure 111/72 Blood Pressure Mean 85 Blood Pressure Source Monitor Blood Pressure Position Semi-Fowlers Blood Pressure Location Left Arm Pulse Ox 98 Oxygen Delivery Method Room Air Weight Weight: 104.326 kg Body Mass Index (BMI) 45.1 Physical Exam Const alert and no apparent distress General Appearance: cooperative HEENT normocephalic Resp normal respiratory effort Cardio regular rate GI soft to palpation GI Narrative: gravid, nontender, appropriate for gestational age Extremity no calf tenderness General Extremity: edema Skin no wounds Rashes: No rashes noted Psych activity/motor behavior normal Labs Labs Labs: Blood Type O POSITIVE Antibody Screen NEGATIVE Hct 36.5 % (37-47) L Hgb 12.8 g/dL (12.0-15.0) Syphilis Total Ab Nonreactive (Nonreactive) VZV IgG Antibody < 135 index (Immune >165) L Rubella IgG Antibody 25.6 IU/mL Assessment & Plan (1) 39 weeks gestation of : (2) History of : PLAN: Plan Repeat
--- NOTE | 2024-12-29 13:16 | PCM.POST.ANE ---
Anesthesia: Postop Eval I Current Vital Signs Temperature: 97 F Pulse Rate: 88 Blood Pressure: 111/63 Respiratory Rate: 16 Pulse Ox: 100 Oxygen Delivery Method: Room Air Assessment Airway patent: Yes Spontaneous unlabored respirations: Yes Mental status: Awake and Calm nausea: No Vomiting: No Anesthesia Complication: No Fluid Hydration Crystalloid volume administer (ml): 1,200 Total IV fluid infused: 1,200 Progress Note Anesthesia document: Postop Eval 1 completed: Yes
--- NOTE | 2024-12-29 13:20 | POSTOPAN2_ITS ---
Anesthesia Postop Eval I Sum Postop Eval Completion status Anesthesia document: Postop Eval 1 completed: Yes Anesthesia Postop Eval I Summary Anesthesia Postop Eval I Summary: Anesthesia Postop Eval I: Assessment Summary Airway patent Yes 12/29/24 13:17 PROJECT MANAGEMENT ADVISOR.MDOT Spontaneous unlabored Yes 12/29/24 13:17 PROJECT MANAGEMENT ADVISOR.MDOT respirations Mental status Awake,Calm 12/29/24 13:17 PROJECT MANAGEMENT ADVISOR.MDOT nausea No 12/29/24 13:17 PROJECT MANAGEMENT ADVISOR.MDOT Vomiting No 12/29/24 13:17 PROJECT MANAGEMENT ADVISOR.MDOT Anesthesia Postop Eval I: Fluid Summary Crystalloid volume administer 1,200 12/29/24 13:17 PROJECT MANAGEMENT ADVISOR.MDOT (ml) Colloids volume administered ( ml) Blood Product volume administered (ml) Total IV fluid infused 1,200 12/29/24 13:17 PROJECT MANAGEMENT ADVISOR.MDOT Anesthesia Postop Eval I: Summary Notes Anesthesia Complication No 12/29/24 13:17 PROJECT MANAGEMENT ADVISOR.MDOT Anesthesia Complication Comment: Post-operative progress note Anesthesia: Postop Eval II Evaluation Mental status: Awake and Calm Pain Level: 0 nausea: No Vomiting: No Complications Anesthesia Complication: No
--- NOTE | 2024-12-29 13:20 | PCM.POSTANE2 ---
Anesthesia Postop Eval I Sum Postop Eval Completion status Anesthesia document: Postop Eval 1 completed: Yes Anesthesia Postop Eval I Summary Anesthesia Postop Eval I Summary: Anesthesia Postop Eval I: Assessment Summary Airway patent Yes 12/29/24 13:17 FIELD INSTALLER.MDOT Spontaneous unlabored Yes 12/29/24 13:17 FIELD INSTALLER.MDOT respirations Mental status Awake,Calm 12/29/24 13:17 FIELD INSTALLER.MDOT nausea No 12/29/24 13:17 FIELD INSTALLER.MDOT Vomiting No 12/29/24 13:17 FIELD INSTALLER.MDOT Anesthesia Postop Eval I: Fluid Summary Crystalloid volume administer 1,200 12/29/24 13:17 FIELD INSTALLER.MDOT (ml) Colloids volume administered ( ml) Blood Product volume administered (ml) Total IV fluid infused 1,200 12/29/24 13:17 FIELD INSTALLER.MDOT Anesthesia Postop Eval I: Summary Notes Anesthesia Complication No 12/29/24 13:17 FIELD INSTALLER.MDOT Anesthesia Complication Comment: Post-operative progress note Anesthesia: Postop Eval II Evaluation Mental status: Awake and Calm Pain Level: 0 nausea: No Vomiting: No Complications Anesthesia Complication: No
[2024-12-29] MEDS: Oxytocin 15 Units/NS 250ml 15 UNITS/250 ML IV.SOLN 83 UNITS IV (13:30)
[2024-12-29] MEDS: Ketorolac 30 MG/ML Syringe IV ×2 (13:50→20:30)
[2024-12-29 14:50] LABS: Bedside Glucose 87 mg/dL (74-106)
[2024-12-29] MEDS: 0.9% Saline Lock 10 ML Syringe IV ×2 (15:05→20:30)
[2024-12-29] MEDS: HYDROmorphone 1 MG/ML Syringe IV (15:05)
[2024-12-29] MEDS: Lactated Ringers 1,000 ML 100 ML IV (16:36)
--- NOTE | 2024-12-29 18:03 | EX.PCM.OBRPT ---
Assessment & Plan (1) S/P : Maternal Data Information Final REBECCA: [birth year] Gestational age: 39+2 Operative Report (OB) Details Procedure Type: low transverse Date of Procedure: 12/29/24 Procedure Start Time: 12:40 Procedure Stop Time: 13:15 Time of Delivery: 12:45 Pre-Operative Diagnosis: Repeat Elective Post-Operative Diagnosis: Same as Pre-operative diagnosis Classification: Scheduled Type of Anesthesia: Spinal Antibiotic Given: Clindamycin 600mg IV x1 and Gentamicin 1.5mg/kg IV x1 Drain: Chinchilla to straight drain Estimated Blood Loss: 800 cc Findings Description of surgery: Patient taken to the OR with spinal and Chinchilla were placed. She was prepped and draped in the normal sterile fashion. A Pfannenstiel incision was made and carried down to the underlying fascia. The fascia was incised in the midline and extended laterally. The fascia was dissected from the muscle. The muscles divided in the midline. The peritoneum was entered bluntly and extended manually. A bladder blade was placed. A bladder flap was created. A low transverse incision was made and extended bluntly. The head was elevated to the incision. The shoulders delivered easily. There was a cord around the body x 1. The cried upon delivery. The cord was cut and clamped. The placenta was delivered with becky traction. The uterus was exteriorized and cleared of all clot and debris. The let side of the uterus was adherent to the omentum and pelvic side wall. The left adnexa could not be visualized. The incision was repaired with 1-0 Vicryl x 2. The uterus was returned the abdomen The gutter cleared of all clots. The peritoneum was closed with 2-0 Monocryl. The fascia was closed with 1-0 Vicryl. The subcutaneous tissue was reapproximated with 2-0 Monocryl The skin was closed with 4-0. I performed the major parts of the procedure with the RFNA assisting with retraction and closing the skin. The sponge lap and needle count was correct x 2 Surgical findings: Adhesions of omentum to anterior uterus. Left adnexa could not be visualized due to adhesions. Presentation: Vertex and ÁLVARO Amniotic Membrane Rupture Type: Artificial Amniotic Fluid Description: Clear Placental Delivery Description: Expressed Placenta Disposition: [facility] Specimen collected: Yes Description of specimen(s) removed: cord blood Cord Vessel Description: 3 Vessels Cord Entanglement: Around neck x 1, loose Nuchal Cord Compression: Without compression A gender: Male (1 minute): 8 (5 minute): 9 Delayed Cord Clamping: Yes Bindery Supervisor radiation oncologist: Yes Wind Turbine Design Engineer: Jacquelin Proctor Tasks completed by assistant at surgery: Opening & closing and Retracting Additional medical assistant supervisor?: No Complications Complications: No
[2024-12-29] MEDS: oxyCODONE 5 MG Tablet PO (18:09)
[2024-12-30] MEDS: Acetaminophen 500 MG Tablet 1000 MG PO ×4 (00:15→18:06)
[2024-12-30] MEDS: Enoxaparin 40 MG/0.4 ML Syringe SC (00:35)
[2024-12-30] MEDS: 0.9% Saline Lock 10 ML Syringe IV ×2 (02:36→09:02)
[2024-12-30] MEDS: Ketorolac 30 MG/ML Syringe IV ×2 (02:36→09:02)
[2024-12-30 02:39] VITALS: BP 94/60; PULSE 64; RESP 16; TEMP 36.6; O2SAT 97
[2024-12-30 05:50] VITALS: BP 109/58; PULSE 83; RESP 16; TEMP 36.4; O2SAT 98
[2024-12-30 06:21] LABS: Hematocrit 31.1 % (37-47); Hemoglobin 10.5 g/dL (12.0-15.0); Mean Corp Hgb Conc 33.8 g/dL (32-36); Mean Corpuscular Volume 82.9 fL (81-99); Mean Platelet Vol. 10.9 fl (6.2-12.0); Platelet Count 222 K/mm3 (150-450); RBC Distribution Width CV 13.6 % (11.6-14.6); RBC Distribution Width SD 41.1 fl (35.1-43.9); Red Blood Count 3.75 M/mm3 (4.2-5.4); White Blood Count 13.6 K/mm3 (4.4-11.0)
[2024-12-30 06:26] LABS: Bedside Glucose 108 mg/dL (74-106)
[2024-12-30] MEDS: SimETHICONE 80 MG Chewable Tablet PO (06:34)
--- NOTE | 2024-12-30 06:49 | PCM.PN.OB ---
Subjective Subjective Doing well. Ambulating and voiding without difficulty. Mild lochia. Breast feeding. Did not get Duramorph. Struggling with pain control Objective Data Objective Data Vital Signs: Vital Signs Temp Pulse Resp BP Pulse Ox O2 Del Method 97.6 F L 83 16 109/58 L 98 Room Air 12/30/24 05:50 12/30/24 05:50 12/30/24 05:50 12/30/24 05:50 12/30/24 05:50 12/30/24 05:50 Oxygen Delivery Method Room Air Weight: 104.326 kg Body Mass Index (BMI) 45.1 Intake & Output: Intake and Output for Last 24 Hours 12/28/24 12/29/24 12/30/24 23:59 23:59 23:59 Intake Total 1986.125 / 1986.125 460 / 460 Output Total 1700 / 1700 500 / 500 Balance 286.125 / 286.125 -40 / -40 Lab / Micro Data 12/30/24 06:00 Labs: Laboratory Results - last 24 hr 12/29/24 09:35: WBC 16.9 H, RBC 4.44, Hgb 12.8, Hct 36.5 L, MCV 82.2, MCH 28.8, MCHC 35.1, RDW Std Deviation 40.2, RDW Coeff of Jono 13.5, Plt Count 271, MPV 11.3, Immature Gran % (Auto) 1.000 H, Neut % (Auto) 72.7 H, Lymph % (Auto) 17.0 L, [place] % (Auto) 7.7, Eos % (Auto) 1.4, Baso % (Auto) 0.2, Absolute Neuts (auto) 12.3 H, Absolute Lymphs (auto) 2.87, Nucleated RBC % 0, Syphilis Total Ab Nonreactive, Blood Type O POSITIVE, Antibody Screen NEGATIVE 12/29/24 10:09: POC Glucose 82 12/29/24 14:23: POC Glucose 87 12/30/24 05:54: POC Glucose 108 H 12/30/24 06:00: WBC 13.6 H, RBC 3.75 L, Hgb 10.5 L, Hct 31.1 L, MCV 82.9, MCH 28.0, MCHC 33.8, RDW Std Deviation 41.1, RDW Coeff of Jono 13.6, Plt Count 222, MPV 10.9 Physical Exam Const alert General Appearance: cooperative GI GI Narrative: soft, moderate distention, fundus firm, appropriately tender. Abdominal bandage clean dry and intact Assessment & Plan (1) S/P : PLAN: Plan Discharge expected tomorrow
[2024-12-30 09:00] VITALS: BP 104/68; PULSE 83; RESP 16; TEMP 36.3; O2SAT 98
[2024-12-30] MEDS: Senna/Docusate Sodium 1 Tablet PO (09:02)
[2024-12-30] MEDS: Famotidine 20 MG Tablet PO (09:02)
[2024-12-30 12:30] VITALS: BP 95/61; PULSE 86; RESP 16; TEMP 36.3; O2SAT 99
[2024-12-30] MEDS: Ibuprofen 600 MG Tablet PO ×2 (14:14→19:52)
[2024-12-30 16:00] VITALS: BP 106/55; PULSE 78; RESP 18; TEMP 36.2
[2024-12-30] MEDS: oxyCODONE 5 MG Tablet PO (19:55)
[2024-12-30 19:59] VITALS: BP 97/51; PULSE 91; RESP 16; TEMP 36.4; O2SAT 100
[2024-12-31] MEDS: Acetaminophen 500 MG Tablet 1000 MG PO ×3 (00:42→12:34)
[2024-12-31] MEDS: oxyCODONE 5 MG Tablet PO ×2 (00:42→06:40)
[2024-12-31] MEDS: Enoxaparin 40 MG/0.4 ML Syringe SC (00:43)
[2024-12-31 02:30] VITALS: BP 115/51; PULSE 58; RESP 17; TEMP 36.3; O2SAT 97
[2024-12-31] MEDS: Ibuprofen 600 MG Tablet PO ×2 (02:32→07:56)
[2024-12-31 07:46] VITALS: BP 118/61; PULSE 71; RESP 18; TEMP 36.3; O2SAT 100
--- NOTE | 2024-12-31 09:13 | PCM.PN.OB ---
Subjective Subjective Denies complaints Objective Data Objective Data Vital Signs: Vital Signs Temp Pulse Resp BP Pulse Ox O2 Del Method 97.3 F L 71 18 118/61 100 Room Air 12/31/24 07:46 12/31/24 07:46 12/31/24 07:46 12/31/24 07:46 12/31/24 07:46 12/31/24 07:46 Oxygen Delivery Method Room Air Weight: 230 lb Body Mass Index (BMI) 45.1 Intake & Output: Intake and Output for Last 24 Hours 12/29/24 12/30/24 12/31/24 23:59 23:59 23:59 Intake Total 1986.125 / 1986.125 460 / 460 Output Total 1700 / 1700 500 / 500 Balance 286.125 / 286.125 -40 / -40 Lab / Micro Data 12/30/24 06:00 Physical Exam Const alert, oriented x3 and no apparent distress HEENT normocephalic GI soft to palpation, non-tender and non-distended GI Narrative: fundus firm, mid & below umbilicus Incision - bandage c/d/i Extremity normal to inspection and no calf tenderness Assessment & Plan (1) S/P : COMMENT: POD#2 PLAN: Plan D/c home
--- NOTE | 2024-12-31 09:16 | PCM.DC.SUM ---
Providers Date of Admission: 12/29/24 Primary Care Physician: Dr. Kingsley Glover MD Reason For Visit: REPEAT Diagnosis Discharge Diagnosis (1) S/P : Status: Acute Code(s): Z98.891 - History of uterine scar from previous surgery Plan D/c home Medications at Discharge Home Medications acetaminophen 325 mg capsule (Tylenol) 325 mg PO ONCE PRN 01/17/22 albuterol sulfate 90 mcg/actuation aerosol inhaler 2 puff inhalation Q6H PRN shortness of breath or wheezing #8.5 grams 01/17/22 fluticasone propionate 44 mcg/actuation HFA aerosol inhaler (Flovent HFA) 2 puff inhalation BID #10.6 grams 01/17/22 naproxen 500 mg tablet 500 mg PO BID PRN pain #60 tabs 01/17/22 lidocaine 5 % topical patch 2 patch topical DAILY #30 ea 01/03/24 duloxetine 20 mg capsule,delayed release See Rx Instructions .Route .COMPLEX #90 caps 04/16/24 ondansetron 4 mg disintegrating tablet 4 mg PO Q8H PRN nausea and vomiting #30 tabs 10/03/24 famotidine 20 mg tablet (Acid Controller) 20 mg PO DAILY heartburn 12/29/24 ondansetron HCl 4 mg tablet 4 mg PO DAILY nausea 12/29/24 vit no.95-ferrous fumarate 28 mg-folic acid 800 mcg tablet ( Multivitamins) 1 tab PO DAILY vitamin 12/29/24 Hospital Course Operations section Procedures None Summary of Care Provided Minutes Spent on Discharge: 15 Weight / BMI Weight Weight: 230 lb Body Mass Index (BMI) 45.1 ABG / Lab / Microbiology Data 12/30/24 06:00 D/C Instructions Discharge Diet: No restrictions Discharge Activity: May Shower May resume sexual activity in: 6 weeks Weight Bearing Status: Weight bearing as tolerated Call your doctor if your incision/area has: Continuous Slow Oozing, Sudden Increased Bleeding, Increased Pain/ Swelling, Increased Redness, Foul Smelling Discharge and Swelling at the incision site Call your doctor if you observe: Fever of 101 or Higher, Coldness, Increased Pain, Change in Color, Inability to urinate, Inability to have a bowel movement, Using more than 1 pad per hour, Shortness of breath, Dizziness, Fainting spells, Chest pain, Increased palpitations (irregular heartbeat), Calf discomfort and Uncontrolled pain Suture Line Care: Avoid Pulling/Pushing and Avoid Pinching/Bending Remove Dressing in: 1 week Cleanse incision/area with: Soap & Water DC O2, CPAP, BIPAP Needs Home O2 Discharge instructions: No Please Follow Up With: Dwight Quinn MD When: Follow up in 2 and 6 weeks for visits. Meaningful Use Info Meaningful Use Meaningful Use Diagnoses (Choose all that apply): None applicable Ischemic Stroke Statin Dosing Therapy Reference: STATIN DOSE THERAPY REFERENCE: * Patients > 75 years receive moderate or high dose statin therapy. * Patients 75 years or YOUNGER should receive HIGH intensity statin dose unless contraindicated. You will be required to document reason for non-treatment if statin daily dose does not meet guidelines. HIGH DOSE STATIN THERAPY DAILY Atorvastatin > than or = to 40 mg Rosuvastatin > than or = to 20 mg Amlodipine + Atorvastatin > than or = to 2.5/40 mg Ezetimibe + Simvastatin 10/80 mg Simvastatin 80mg Discharge Plan Admission Admit Date/Time: 12/29/24 09:14 Primary Reason for Your Visit: section Attending Provider: Krystal Harmon Primary Care Provider: Kingsley Glover Discharge Orders/Prescriptions Prescriptions: Continued acetaminophen [Tylenol] 325 mg capsule 325 mg PO ONCE PRN albuterol sulfate 90 mcg/actuation HFA aerosol inhaler 2 puff inhalation Q6H PRN (Reason: shortness of breath or wheezing) Qty: 8.5 1RF Flovent HFA 44 mcg/actuation HFA aerosol inhaler 2 puff inhalation BID Qty: 10.6 3RF Rx Instructions: administer with spacer naproxen 500 mg tablet 500 mg PO BID PRN (Reason: pain) Qty: 60 1RF duloxetine 20 mg capsule,delayed release(DR/EC) See Rx Instructions .ROUTE .COMPLEX Qty: 90 1RF Dose Instruction: TAKE 1 CAPSULE BY MOUTH DAILY Rx Instructions: TAKE 1 CAPSULE BY MOUTH DAILY PNV cmb#95-ferrous fumarate-FA [ Multivitamins] 28 mg iron- 800 mcg tablet 1 tab PO DAILY famotidine [Acid Controller] 20 mg tablet 20 mg PO DAILY ondansetron HCl 4 mg tablet 4 mg PO DAILY lidocaine 5 % adhesive patch,medicated 2 patch topical DAILY Qty: 30 1RF Rx Instructions: leave on most painful area for up to 12 hrs ondansetron 4 mg tablet,disintegrating 4 mg PO Q8H PRN (Reason: nausea and vomiting) Qty: 30 1RF Discontinued aspirin [Adult Aspirin Regimen] 81 mg tablet,delayed release (DR/EC) 81 mg PO QDAY pantoprazole 40 mg tablet,delayed release (DR/EC) 40 mg PO DAILY Qty: 30 2RF Referrals / Follow Up: Kingsley Glover MD [Primary Care Provider] - Disposition Disposition (needs filled in before D/C Order can be placed): Home, Self Care
[2024-12-31] MEDS: Senna/Docusate Sodium 1 Tablet PO (11:06)
[2024-12-31] MEDS: Famotidine 20 MG Tablet PO (11:06)
--- NOTE | 2024-12-31 13:15 | NURSING ---
Patient declined vital signs at this time.
--- NOTE | 2025-01-01 14:08 | CASEMGMT ---
Social Work Assessment Labor and Delivery Unit Patient Address: [address] [place] [address] Phone number: [phone] Date of Referral: 12/29/24 Time of Referral:? 1839 Referred By: Dr. Harmon Date of Intervention: 12/31/24 Time of Intervention:?1410 Reason for Referral:? resources Sw completed chart review and acknowledges social work consult. Sw presented to bedside and introduced self to mother of baby (SANDOVAL- Amber) and father of baby (FOB- Bravo Cerrato). Sw explained reason for sw involvement and completed psychosocial assessment. MOB had visitor present with her, reports that it is her 15 year old daughter. SANDOVAL states that it is okay for sw to complete assessment with her daughter present. History obtained from: medical records, MOB and FOB. Household composition: Currently residing in the home is SANDOVAL, GRANT, SANDOVAL's 15 year old daughter (Lester). SANDOVAL states that she has two brothers who are also residing with them at this time because they are homeless. SANDOVAL denies any problems or concerns with housing, reporting that where they live is safe and secure. Patient's parent/guardian status:? ?MOB states that she and GRANT initially met at work, and then through mutual friends, they have been together for 2 years. [place] baby is first baby for parents together, and FOB's first baby, SANDOVAL's second. No concerns reported regarding domestic violence or intimate partner violence. Medical History: ?SANDOVAL is 29 year old female who is 4, para 1- now 2 following labor and delivery of . SANDOVAL received routine care during with [facility]. SANDOVAL presented to hospital and delivered baby via repeat at 39 weeks gestation. Baby boy, named Kala Quinn, was born weighing 7lb 13oz and had apgars of 8 and 9 at one and five minutes of life, respectfully. SANDOVAL is breast feeding and baby will be followed by Dr. Khan for pediatrics. Educational Status:? MOB reports to graduating high school and FOJuan obtained his GED. Parents deny any issues with reading, comprehension or learning. Financial Status: Both parents are employed. SANDOVAL works at [employer] in [place], GRANT works in at [employer]. Supplies: All necessary baby supplies obtained, including: car seat, safe sleep space, clothes, diapers and wipes. Childcare/Caregiver(s):? SANDOVAL reports to being the primary caregiver to baby, along with FOB when he is not at work. Parents report that they are hoping they would be able to alternate their work schedules so that one of them is always with baby. IF there are overlaps MOB states she has a friend who will be able to assist with intermittent childcare. Transportation:??Both parents have reliable means of transportation, no barriers at this time. Programs/Agencies Involved: ??SANDOVAL reports to having insurance provided by [facility] [place] [place] and [employer]. SANDOVAL states that she was also connected to [facility] during . SANDOVAL states that she is going to ask MIN if she is eligible for SNAP now that her maternity leave is unpaid and she has another dependent. Children Services/Legal Issues:?No prior involvement with children services. No issues or concerns warranting referral to be made at this time. ?? Behavioral Health Issues: ??Mental Health History:??FOB states that he has ADHD, and it is unclear if he is currently prescribed medication or just in the past. FOB states that he was born to a mother who also abused substances during her , whether or not he was born addicted is unknown. SANDOVAL states that she has a mental health history positive for anxiety and depression. SANDOVAL denies being prescribed any medications to help her manage her mental health symptoms. SANDOVAL states that she did struggle with depression after her first baby was born due to having an unsupportive father/ partner. SANDOVAL states that ?she has felt as though her mental health has been managed during her and thus far after delivery. Substance Use History:?Parents deny history of substance use prior to and during . ? Family History:???Parents deny family history of substance use or significant mental health diagnoses. ?? Drug Screens: No drug screens observed while completing chart review. Family/Social Stressors:? SANDOVAL denies any problems, issues or concerns at this time. Support Systems: SANDOVAL states that her biggest supports are FOB, her daughter, some friends and family. Depression/Shaken Baby/Safe Sleeping: Jim educated parents on signs and symptoms of baby blues and depression and anxiety. SANDOVAL states that she is understanding regarding signs and symptoms of what to be on the lookout for. FOB states that if MOB were to struggle with her mental health during this period, he would be able to recognize it. FOB states that he is able to read MOB well, and would try to help her but she may not always be receptive to his efforts. MOB states that this is true, and reports that sometimes FOB tries too hard and in the end it ends up annoying her. Sw encouraged parents to have a conversation about ways that FOB is able to help MOB if she were to struggle. Sw educated parents on shaken baby prevention and ABCs of safe sleep, parents express understanding. ASSESSMENT:? MOB and baby admitted following labor and delivery. MOB and FOB receptive to meeting with sw and talkative throughout completion of psychosocial assessment. MOB has mental health history, positive for anxiety and depression. MOB admits to struggling after the delivery of her first baby, and states that she was 13 when she had her daughter, which was 15 years ago, and she feels more prepared and ready for what this may look like. MOB states that she has healthy and safe coping skills. MOB reports to enjoy reading and spending quality time at home with her family. MOB open and talkative, as well as FOB while completing assessment. MOB was sitting on bed while her daughter and FOB were on chair and couch. Baby was asleep in bassinet and looked to be comfortable. MOB and FOB report to obtaining all necessary baby supplies and have natural supports in place. PLAN:?? No other services requested or indicated. MOB and baby to be discharged when medically ready. Parents were provided literature regarding: signs and symptoms of baby blues and mood and anxiety disorders, [employer], shaken baby prevention, ABCs of safe sleep and a list of county resources that are available for them should any needs present themselves. Barry Otto, CHIEF OPERATIONS OFFICER, TRACTOR TRAILER TECHNICIAN
== END 2024-12-31 13:30 | disposition home or self-care (01) | DRG 540 ==
PROVIDERS: Admitting Provider Obstetrics & Gynecology; PCP Internal Medicine; Referring Provider Obstetrics & Gynecology; Visit Provider Obstetrics & Gynecology
PROC: 10D00Z1 Extraction of Products of Conception, Low, Open Approach (ICD-10-PCS; CPT 59514; principal; 2024-12-29 11:45)
DX: O34.219 Maternal care for unspecified type scar from previous cesarean delivery (principal); F17.210 Nicotine dependence, cigarettes, uncomplicated; O99.62 Diseases of the digestive system complicating childbirth; O99.334 Smoking (tobacco) complicating childbirth; Z37.0 Single live birth; O69.2XX0 Labor and delivery complicated by other cord entanglement, with compression, not applicable or unspecified; Z79.51 Long term (current) use of inhaled steroids; K66.0 Peritoneal adhesions (postprocedural) (postinfection); Z3A.39 39 weeks gestation of pregnancy; N96 Recurrent pregnancy loss; O99.893 Other specified diseases and conditions complicating puerperium; Z86.32 Personal history of gestational diabetes
CPT/HCPCS: 59025; 59050; 82962; 85025; 85027; 86780; 86850; 86900; 86901; 99221; A4216; G0378; J2405